=== PATIENT | female | born 1945 | race Two or more races ===

== ENCOUNTER 2023-10-15 07:05 | Emergency (ER) | payer OTHER ==
[~2023-10-15] VITALS: Ht 144.8 cm; Wt 34.8 kg
[2023-10-15 07:54] LABS: Urine Bacteria NONE SEEN /hpf (None Seen); Urine Blood Negative /uL (Negative); Urine Clarity Clear (Clear); Urine Color Yellow (Yellow); Urine Protein, UAD TRACE (Negative); Urine Specific Gravity 1.033 (1.001-1.035); Urine Urobilinogen Normal (Negative); Urine WBC 3 /hpf (0 - 5); Urine pH 5.5 (5.0-8.0)
[2023-10-15 08:05] LABS: Basophils # (auto) 0 10 ^3/uL (0-0.2); Basophils % (auto) 0.5 % (0.0-2.0); Eosinophils # (auto) 0 10 ^3/uL (0-0.8); Eosinophils % (auto) 0.2 % (0.0-7.0); Hematocrit 39.1 % (36.0-46.0); Hemoglobin 13.2 g/dL (12.2-16.2); Lymphocytes # (auto) 0.4 10 ^3/uL (0.4-5.4); Lymphocytes % (auto) 7.3 % (10.0-50.0); Mean Corpuscular Hemoglobin 30.2 pg (28.0-32.0); Mean Corpuscular Hgb Conc. 33.7 g/dL (32.0-36.0); Mean Corpuscular Volume 89.4 fL (80.0-100.0); Monocytes # (auto) 0.3 10 ^3/uL (0-1.3); Monocytes % (auto) 5.3 % (0.0-12.0); Neutrophils % (auto) 86.7 % (37.0-80.0); Red Blood Cells 4.37 10^6/uL (4.0-5.20); White Blood Cell 5.7 10^3/uL (4.4-10.8)
[2023-10-15 08:21] LABS: Alanine Aminotransferase 341 U/L (7-40); Albumin 4.6 g/dL (3.2-4.8); Alkaline Phosphatase 815 U/L (46-116); Anion Gap 8 (5-15); Aspartate Aminotransferase 302 U/L (13-40); BUN/Creatinine Ratio 10.7 (10.0-20.0); Bilirubin, Total 9.8 mg/dL (0.2-1.0); Blood Urea Nitrogen 6 mg/dL (9-23); Carbon Dioxide 27 mmol/L (20-30); Chloride 98 mmol/L (98-107); Glucose 265 mg/dL (74-106); Potassium 3.4 mmol/L (3.5-5.1); Sodium 133 mmol/L (136-145); Total Protein 7.6 g/dL (5.7-8.2)
[2023-10-15] MEDS ORDERED: IOHEXOL 300 MG/ML 100ML BOTTLE IJ ONE (08:41)
[2023-10-15 09:20] VITALS: PULSE 85; RESP 13; O2SAT 100
[2023-10-15 18:38] VITALS: BP 152/77; PULSE 65; RESP 12; TEMP 98.3; O2SAT 97
== END 2023-10-15 19:20 | disposition short-term general hospital (02) ==
LOC: ER 07:05
DX: K76.9 Liver disease, unspecified (principal); I10 Essential (primary) hypertension; E11.65 Type 2 diabetes mellitus with hyperglycemia; Z88.2 Allergy status to sulfonamides; Z88.5 Allergy status to narcotic agent
CPT/HCPCS: 36415; 74177; 80053; 81001; 82962; 83690; 85025; 99285; Q9967

== ENCOUNTER 2024-08-31 11:10 | Inpatient (IN) | payer OTHER ==
[~2024-08-31] VITALS: Ht 144.8 cm; Wt 37.7 kg
[2024-08-31 13:00] VITALS: PULSE 92; RESP 14; O2SAT 96
[2024-08-31 13:23] LABS: Basophils # (auto) 0 10 ^3/uL (0-0.2); Basophils % (auto) 0.3 % (0.0-2.0); Eosinophils # (auto) 0 10 ^3/uL (0-0.8); Eosinophils % (auto) 0.2 % (0.0-7.0); Hematocrit 33.7 % (36.0-46.0); Hemoglobin 10.8 g/dL (12.2-16.2); Lymphocytes # (auto) 0.6 10 ^3/uL (0.4-5.4); Mean Corpuscular Hemoglobin 28.4 pg (28.0-32.0); Mean Corpuscular Hgb Conc. 32.1 g/dL (32.0-36.0); Mean Corpuscular Volume 88.5 fL (80.0-100.0); Monocytes # (auto) 0.3 10 ^3/uL (0-1.3); Monocytes % (auto) 7.6 % (0.0-12.0); Neutrophils # (auto) 3.5 10 ^3/uL (1.6-8.6); Neutrophils % (auto) 77.9 % (37.0-80.0); Nucleated Red Blood Cells % 0.2 %; Platelet Count (auto) 229 10^3/uL (140-450); Red Blood Cells 3.81 10^6/uL (4.0-5.20); Red Cell Distribution Width 16.5 % (11.8-14.3); White Blood Cell 4.4 10^3/uL (4.4-10.8)
[2024-08-31] MEDS: ONDANSETRON ODT 4 MG TAB PO ONE (13:23)
--- NOTE | 2024-08-31 13:29 | ED.PDOC ---
Musculoskeletal HPI Comments 78 Y F, with PMHX of HTN, DM, cancer, presents to the ED with CC of extremity swelling. Per patient's daughter, patient had a right DVT in June 2024, and has since been experiencing bilateral leg swelling. Patient relays, that she has no pain with c/o heavy feeling in both her legs and denies any pain. Patient has been taking Eliquis; since Jun for DVT. Patient's daughter states that she has been unable to see oncologist due to right hip Fx in Jun 2024; that has resulted in patient not receiving chemotherapy. Patient denies any chills, fever, nausea, diarrhea, or vomiting. Chief Complaint: Extremity Swelling Time Seen by MD: 12:45 Reviewed Notes: Nurses Notes, Medications, Allergies Allergies: Coded Allergies: Codeine (Verified Allergy, Unknown, 10/15/23) Sulfa Antibiotics (Verified Allergy, Unknown, 10/15/23) Mode of Arrival: Ambulatory Location: Bilateral Extremity Location: Leg Timing: Months Prehospital treatment: None Severity: Mild Able to Move Extremity: Yes Pain: None Mechanism: None Symptoms: Swelling DVT Risk Factors: Cancer Associated signs and symptoms: Swelling Past Medical History PAST MEDICAL HISTORY: Cancer, DM, HTN Surgical History: PRESS SET UP History: Denies all PRESS SET UP Hx Family History Family History: Unknown Social History Smoker: Non-Smoker Alcohol: Denies ETOH Use Drugs: Denies Drug Use Lives In: Home Constitutional: denies: chills, diaphoresis, fatigue, fever, malaise, sweats, weakness, others EENTM: denies: blurred vision, double vision, ear bleeding, ear discharge, ear drainage, ear pain, ear ringing, eye pain, eye redness, hearing loss, mouth pain, mouth swelling, nasal discharge, nose bleeding, nose congestion, nose pain, photophobia, tearing, throat pain, throat swelling, voice changes, others Respiratory: denies: cough, hemoptysis, orthopnea, SOB at rest, shortness of breath, SOB with excertion, stridor, wheezing, others Cardiovascular: denies: chest pain, dizzy spells, diaphoresis, Dyspnea on exertion, edema, irregular heart beat, left arm pain, lightheadedness, palpitations, PND, syncope, others Gastrointestinal: denies: abdomen distended, abdominal pain, blood streaked bowels, constipated, diarrhea, dysphagia, difficulty swallowing, hematemesis, melena, nausea, poor appetite, poor fluid intake, rectal bleeding, rectal pain, vomiting, others Genitourinary: denies: abnormal vagina bleeding, burning, dyspareunia, dysuria, flank pain, frequency, hematuria, incontinence, pain, , vagina discharge, urgency, others Neurological: denies: dizziness, fainting, headache, left sided numbness, left sided weakness, numbness, paresthesia, pre-existing deficit, right sided numbness, right sided weakness, seizure, speech problems, tingling, tremors, weakness, others Musculoskeletal: reports: others (bilateral leg swelling); denies: back pain, gout, joint pain, joint swelling, muscle pain, muscle stiffness, neck pain Integumetry: denies: bruises, change in color, change in hair/nails, dryness, laceration, lesions, lumps, rash, wounds, others Allergic/Immunocompromised: denies: Difficulty Healing, Frequent Infections, Hives, Itching, others Hematologic/Lymphatic: denies: anemia, blood clots, easy bleeding, easy bruising, swollen glands, others Endocrine: denies: excessive hunger, excessive sweating, excessive thirst, excessive urination, flushing, intolerance to cold, intolerance to heat, unexplained weight gain, unexplained weight loss, others Psychiatric: denies: anxiety, bipolar disorder, depression, hopeless, panic disorder, schizophrenia, sleepless, suicidal, others All Other Systems: Reviewed and Negative Physical Exam General Appearance: No Apparent Distress, Thin HEENT: Normal ENT Inspection, PERRL/EOMI, Pharynx Normal, TMs Normal Neck: Full Range of Motion, Non-Tender, Normal, Normal Inspection Respiratory: Chest Non-Tender, Lungs Clear, No Accessory Muscle Use, No Respiratory Distress, Normal Breath Sounds Cardiovascular: No Edema, No JVD, No Murmur, No Gallop, Normal Peripheral Pulses, Regular Rate/Rhythm Breast Exam: Deferred Gastrointestinal: No Organomegaly, Non Tender, No Pulsatile Mass, Normal Bowel Sounds, Soft Genitalia: Deferred Pelvic: Deferred Rectal: Deferred Extremities: Leg edema, No calf tenderness, Normal capillary refill, Normal inspection, Normal range of motion, Non-tender, No pedal edema, Swelling, Tender, Other (Swollen almost left leg patient had fracture right hip and a DVT to the right leg) Musculoskeletal : Apperance: Normal Neurologic: Alert, information assurance officer II-XII nml as Tested, No Motor Deficits, Normal Affect, Normal Mood, No Sensory Deficits Cerebellar Function: Normal Reflexes: Normal Skin: Dry, Normal Color, Warm Peripheral Pulses: 1+ carotid (R), 1+ carotid (L) Lymphatic: No Adenopathy Was a procedure done? Was a procedure done?: No Differential Diagnosis EXT Differential Diagnosis: CHF, Deep Vein Thrombosis, Arthritis X-Ray, Labs, Meds, VS Vital Signs Date Time Temp Pulse Resp B/P (MAP) Pulse Ox O2 Delivery O2 Flow Rate FiO2 08/31/24 15:11 77 08/31/24 15:00 79 13 164/84 (110) 96 08/31/24 13:00 92 14 132/76 (94) 96 08/31/24 13:00 92 14 96 Room Air* 0 21 08/31/24 12:30 94 16 132/76 (94) 97 08/31/24 12:29 94 08/31/24 11:37 97.3 106 18 123/75 (91) 99 Lab Test 08/31/24 12:58 08/31/24 12:44 Range/Units White Blood Count 4.4 4.4-10.8 10^3/uL Red Blood Count 3.81 L 4.0-5.20 10^6/uL Hemoglobin 10.8 L 12.2-16.2 g/dL Hematocrit 33.7 L 36.0-46.0 % Mean Corpuscular Volume 88.5 80.0-100.0 fL Mean Corpuscular Hemoglobin 28.4 28.0-32.0 pg Mean Corpuscular Hemoglobin Concent 32.1 32.0-36.0 g/dL Red Cell Distribution Width 16.5 H 11.8-14.3 % Platelet Count 229 140-450 10^3/uL Mean Platelet Volume 6.9 6.9-10.8 fL Neutrophils (%) (Auto) 77.9 37.0-80.0 % Lymphocytes (%) (Auto) 14.0 10.0-50.0 % Monocytes (%) (Auto) 7.6 0.0-12.0 % Eosinophils (%) (Auto) 0.2 0.0-7.0 % Basophils (%) (Auto) 0.3 0.0-2.0 % Neutrophils # (Auto) 3.5 1.6-8.6 10 ^3/uL Lymphocytes # (Auto) 0.6 0.4-5.4 10 ^3/uL Monocytes # (Auto) 0.3 0-1.3 10 ^3/uL Eosinophils # (Auto) 0 0-0.8 10 ^3/uL Basophils # (Auto) 0 0-0.2 10 ^3/uL Nucleated Red Blood Cells 0.2 % Prothrombin Time 11.4 9.3-11.8 sec Prothrombin Time INR 1.08 0.9-1.15 Activated Partial Thromboplast Time 26.3 24.5-34.5 SEC D-Dimer, Quantitative 2.73 H 0.0-0.49 mg/L FEU Sodium Level 139 136-145 mmol/L Potassium Level 2.4 *L 3.5-5.1 mmol/L Chloride Level 99 98-107 mmol/L Carbon Dioxide Level 31 20-31 mmol/L Anion Gap 9 5-15 Blood Urea Nitrogen 8 L 9-23 mg/dL Creatinine 0.45 L 0.550-1.02 mg/dL Glomerular Filtration Rate Calc 98 >90 mL/min BUN/Creatinine Ratio 17.8 10.0-20.0 Serum Glucose 145 H 74-106 mg/dL Calcium Level 8.8 8.7-10.4 mg/dL Magnesium Level 1.6 1.6-2.6 mg/dL Total Bilirubin 0.4 0.2-1.0 mg/dL Aspartate Amino Transferase (AST) 26 13-40 U/L Alanine Aminotransferase (ALT) 13 7-40 U/L Alkaline Phosphatase 121 H 46-116 U/L B-Type Natriuretic Peptide 49.26 0-100 pg/mL Total Protein 5.7 5.7-8.2 g/dL Albumin 3.4 3.2-4.8 g/dL Thyroid Stimulating Hormone (TSH) 13.77 H 0.55-4.78 uIU/mL POC Glucose 141 H 70-106 mg/dl Current Medications Medications (Trade) Dose Ordered Sig/Vira Route Start Time Stop Time Status Last Admin Ondansetron HCl (Zofran Po) 4 mg ONCE ONCE PO 08/31/24 13:15 08/31/24 13:16 DC 08/31/24 13:23 Sodium Chloride 1,000 ml @ 150 mls/hr Q6H40M ONCE IV 08/31/24 13:30 08/31/24 20:09 08/31/24 13:38 Potassium Bicarbonate (Klor-Con/Ef) 50 meq ONCE ONCE PO 08/31/24 14:00 08/31/24 14:01 DC 08/31/24 14:00 Acetaminophen/ Hydrocodone Bitart ([place] 5/325MG Tab) 1 tab ONCE ONCE PO 08/31/24 15:30 08/31/24 15:31 DC 08/31/24 15:21 [place] [id number] Ph: [phone] DIAGNOSTIC IMAGING Diagnostic Imaging Report : [id number] Signed PATIENT: BETHANIE FAUSTACCT: [id number] UNIT: [id number] : 1945 LOC: ER ROOM / BED: / AGE / SEX: 78 / F ADM STATUS: REG ER SERVICE 0000 ORDERING PHYSICIAN: TORI SEAMAN MD PROCEDURE(s): LLDVT - LT Lower DVT REASON: DVT ORDER NUMBER(s): [id number], ACCESSION NUMBER(s): [id number] Left lower extremity venous duplex Clinical History: Edema Comparison: None Findings: Duplex Doppler evaluation of the deep venous system of the left lower extremity from the common femoral vein to the popliteal vein including color Doppler and spectral/pulsed waveform analysis was performed. The common femoral vein demonstrates appropriate compressibility and waveform variability . There is compressibility/patency of the great saphenous vein at the proximal thigh . There is complete occlusion of the proximal femoral vein extending to the distal femoral vein. The popliteal vein demonstrates appropriate compressibility and waveform variability . There is normal compressibility at the tibioperoneal trunk. Impression: Left lower extremity DVT. If clinical concern/symptoms persist or worsen, short-interval follow-up study is suggested. ATED BY: DEAN PERALTA MD DICTATED DATE/TIME: 08/31/241426 SIGNED BY: DEAN PERALTA MD SIGNED DATE/TIME: 08/31/241426 CC: X-Ray, Labs, Meds, VS Comment Course in the emergency department eventful patient came in complaining of extremity swelling and chronic pain patient with a history of diabetes hypertension hypothyroidism Chest x-ray is normal The ultrasound of the legs shows total obstruction of the proximal femoral vein extending to the distal CBC 4400 with 77% neutrophils H&H 10.6 and 33.7 Magnesium 1.6 BNP in 40 to Urine pending D-dimer elevated 2.73 TSH 13.77 INR 1.08 CMP potassium of 2.4 blood sugar 141 Patient will be admitted for further care patient also has history of pancreatic cancer bile stents Dr. Tyson will admit the patient Time of 1ST Reevaluation: 13:15 Reevaluation 1ST: Unchanged Time of 2ND Reevaluation: 15:44 Reevaluation 2ND: Unchanged Patient Education/Counseling: Diagnosis, Treatment, Prognosis Family Education/Counseling: Diagnosis, Treatment, Prognosis, No Family Present Departure 1 Departure Time of Disposition: 17:15 Impression: Primary Impression: Deep vein thrombosis (DVT) of left lower extremity Qualified Codes: I82.412 - Acute embolism and thrombosis of left femoral vein Additional Impressions: Hypokalemia Elevated d-dimer Hypothyroidism (acquired) Hyperglycemia Pancreatic cancer Qualified Codes: C25.9 - Malignant neoplasm of pancreas, unspecified History of biliary duct stent placement Disposition: ADMITTED INPATIENT Admit to: Tele Condition: Fair Critical Care Note Critical Care Time?: No Stability Stability form required: Yes Unstable for transfer: Telemetry monitoring, Requires medication (Requires Med for stabilization) Heart Score Heart Score: Heart Score Response (Comments) Value History N/A 0 EKG N/A 0 Age >65 2 Risk Factors >3 or Hx ASHD 2 Troponin N/A 0 Total 4 I personally scribed for TORI SEAMAN MD ([email or web address]) on 08/31/24 at 13:29. Electronically submitted by Falguni Adams ([email or web address]). I personally scribed for TORI SEAMAN MD ([email or web address]) on 08/31/24 at 15:53. Electronically submitted by Eileen Major ([email or web address]). TORI SEAMAN MD Aug 31, 2024 13:29
[2024-08-31] MEDS: SODIUM CHLORIDE 0.9% 1,000 ML IV ONE (13:38)
[2024-08-31 13:43] LABS: Alanine Aminotransferase 13 U/L (7-40); Albumin 3.4 g/dL (3.2-4.8); Anion Gap 9 (5-15); Aspartate Aminotransferase 26 U/L (13-40); BUN/Creatinine Ratio 17.8 (10.0-20.0); Calcium 8.8 mg/dL (8.7-10.4); Chloride 99 mmol/L (98-107); Sodium 139 mmol/L (136-145)
[2024-08-31 13:44] LABS: Bilirubin, Total 0.4 mg/dL (0.2-1.0)
[2024-08-31 13:50] LABS: Alkaline Phosphatase 121 U/L (46-116); Blood Urea Nitrogen 8 mg/dL (9-23); Carbon Dioxide 31 mmol/L (20-31); Glucose 145 mg/dL (74-106); Magnesium 1.6 mg/dL (1.6-2.6); Total Protein 5.7 g/dL (5.7-8.2)
[2024-08-31 13:51] LABS: Potassium 2.4 mmol/L (3.5-5.1)
[2024-08-31] MEDS: POTASSIUM EFFERVESENT TAB 25 MEQ PO ONE (14:00)
--- NOTE | 2024-08-31 14:30 | DVH ---
Left lower extremity venous duplex Clinical History: Edema Comparison: None Findings: Duplex Doppler evaluation of the deep venous system of the left lower extremity from the common femor al vein to the popliteal vein including color Doppler and spectral/pulsed waveform analysis was perfo rmed. The common femoral vein demonstrates appropriate compressibility and waveform variability . There is compressibility/patency of the great saphenous vein at the proximal thigh . There is complete occlusion of the proximal femoral vein extending to the distal femoral vein. The popliteal vein demonstrates appropriate compressibility and waveform variability . There is normal compressibility at the tibioperoneal trunk. Impression: Left lower extremity DVT. If clinical concern/symptoms persist or worsen, short-interval follow-up study is suggested.
[2024-08-31] MEDS: HYDROcodone-ACET 5/325MG TAB PO ONE (15:21)
[2024-08-31 17:00] LABS: INR 1.08 (0.9-1.15); Partial Thromboplastin Time 26.3 SEC (24.5-34.5); Prothrombin Time 11.4 sec (9.3-11.8)
[2024-08-31] MEDS: LEVOTHYROXINE SODIUM 100 MCG/5 ML INJ IV ONE (17:53)
[2024-08-31] MEDS: ENOXAPARIN SOD 60 MG/0.6 ML SYRINGE SC ONE (17:53)
[2024-08-31] MEDS: ACETAMINOPHEN 325 MG TAB PO ONE (17:53)
--- NOTE | 2024-08-31 19:53 | DVH ---
EXAM: CHEST TWO VIEWS ROUTINE CLINICAL HISTORY: Fluid retention COMPARISON: None TECHNIQUE: Frontal and lateral view of the chest was obtained FINDINGS: Lines and Tubes: There is a right chest port central venous catheter the tip at the cavoatrial juncti on. Lungs: No focal consolidation. Pleura: No effusion. No pneumothorax. Cardiomediastinal contours: Unremarkable Pulmonary vasculature: Within normal limits. Bones: No acute osseous abnormality. IMPRESSION: 1.No acute cardiopulmonary disease.
[2024-08-31] MEDS ORDERED: SODIUM CHLORIDE 0.9% 1,000 ML IV SCH (20:00)
[2024-08-31] MEDS: IOHEXOL 350 MG/ML 100ML IJ ONE (20:17)
[2024-08-31] MEDS: SODIUM CHLORIDE 0.9% 250 ML IV ONE (20:36)
[2024-08-31] MEDS: MAGNESIUM SULFATE 1GM/100ML 100 ML IV SCH (20:37)
[2024-08-31 20:43] LABS: Urine Bacteria None Seen /hpf (None Seen)
[2024-08-31] MEDS: POTASSIUM CHL 20 Meq TABLET PO ONE (20:43)
[2024-08-31 21:06] LABS: Urine Blood Negative /uL (Negative); Urine Budding Yeast OCCASIONAL /hpf (None Seen); Urine Clarity Clear (Clear); Urine Color Light-Yellow (Yellow); Urine Protein, UAD Negative (Negative); Urine Specific Gravity 1.022 (1.001-1.035); Urine Urobilinogen Normal (Negative); Urine WBC 3 /hpf (0 - 5); Urine pH 6.5 (5.0-9.0)
--- NOTE | 2024-08-31 21:24 | DVH ---
Exam: CT CT CHEST/AB/PL W CON- IV ONLY History: hx of cancer Comparison Study: None available at time of dictation. Technique: Multidetector spiral CT of the chest, abdomen and pelvis was performed from lower neck to pubic symphysis. Intravenous contrast was administered during this examination. Portal venous imagi ng was obtained. Axial, coronal and sagittal multiplanar reformats were performed by the technologist on a separate workstation. Radiation Dose : 1. Chest/Abdomen/Pelvis: CTDIvol 6 mGy, DLP 450 mGy*cm. Findings: Lower neck: Within normal limits Lungs: 1.1 cm spiculated lesion in the left upper lobe ( series 2, image 71). Spiculated lesion in th e posterior left lower lobe measuring 1.4 cm ( series 4, image 66). Smaller pulmonary nodule seen marina aterally throughout the lungs. Heart/Vascular Structures: Pulmonary emboli seen bilaterally in the proximal segmental arteries. No dilation of the pulmonary trunk. No right heart strain. Moderate calcification of the coronary vesse ls. Lymph Nodes: No adenopathy Pleura: Within normal limits Liver: The liver is normal in size. No focal lesions. Normal hepatic vascular enhancement. Gallbladder and Biliary Tree: Pneumobilia with biliary stent. There is tiny foci of air within the ga llbladder and in the hepatic hilum. Spleen: Unremarkable Pancreas: Severe dilation of the main pancreatic duct measuring up to 2 cm. Ill-defined hypoattenuati ng lesions near the pancreatic head. Adrenal Glands: Unremarkable Kidneys: Kidneys demonstrate normal symmetric enhancement without focal lesions, calculi or hydroneph rosis. Bladder: Unremarkable Bowel: The stomach is grossly normal in appearance. Fluid-filled distended loops of small bowel, whic h are nonspecific but can be seen with viral enteritis.. Moderate fecal retention throughout the colo n. The appendix is not visualized; however, no secondary findings of acute appendicitis identified. Ascites: Absent Lymphadenopathy: No mesenteric, retroperitoneal or periportal lymphadenopathy. Abdominal Wall and Mesentery: Unremarkable. Vasculature: The visualized abdominal aorta is normal in size and caliber. Abdominal and pelvic vess els demonstrate normal enhancement. Pelvic Organs: Unremarkable Musculoskeletal: No aggressive focal bony lesions, acute fractures or dislocation. Chronic deformity of the right superior and inferior pubic rami. IMPRESSION: Pulmonary emboli seen bilaterally in the proximal segmental arteries. No dilation of the pulmonary tr unk. No right heart strain. Pulmonary lesions as described above. Pneumobilia with biliary stent. Tiny foci of air within the gallbladder and in the gallbladder fossa. Severe dilation of the main pancreatic duct measuring up to 2 cm with several ill-defined hypodensiti es of the pancreatic head. Correlate with patient's history for possible pancreatic cancer. Ancillary findings as described above. Critical findings Critical Result: Pulmonary embolism Findings discussed with TORI SEAMAN at 08/31/2024 09:21 PM, and acknowledged receipt and understand ing of the findings.
[2024-08-31] MEDS ORDERED: HEPARIN DRIP/D5W 100UNITS/ML 250 ML IV SCH (21:45)
[2024-08-31] MEDS ORDERED: DOCUSATE SOD 100 MG CAP PO PRN (21:45)
[2024-08-31] MEDS ORDERED: HEPARIN SODIUM (PORCINE) 5000 UNITS/ML 1ML VIAL IV ONE (21:45)
[2024-08-31] MEDS ORDERED: ONDANSETRON HCL 4 MG/2 ML VIAL IV PRN (21:45)
[2024-08-31] MEDS ORDERED: NITROGLYCERIN 0.4 MG SL TAB SL PRN (21:45)
[2024-08-31 21:50] VITALS: PULSE 86; RESP 16; O2SAT 94
[2024-08-31 22:54] LABS: Basophils # (auto) 0 10 ^3/uL (0-0.2); Basophils % (auto) 0.6 % (0.0-2.0); Eosinophils # (auto) 0 10 ^3/uL (0-0.8); Eosinophils % (auto) 0.4 % (0.0-7.0); Hematocrit 31.3 % (36.0-46.0); Hemoglobin 10.4 g/dL (12.2-16.2); Lymphocytes # (auto) 0.6 10 ^3/uL (0.4-5.4); Mean Corpuscular Hemoglobin 29.3 pg (28.0-32.0); Mean Corpuscular Hgb Conc. 33.2 g/dL (32.0-36.0); Mean Corpuscular Volume 88.3 fL (80.0-100.0); Monocytes # (auto) 0.3 10 ^3/uL (0-1.3); Monocytes % (auto) 7.1 % (0.0-12.0); Neutrophils # (auto) 2.9 10 ^3/uL (1.6-8.6); Neutrophils % (auto) 75.9 % (37.0-80.0); Nucleated Red Blood Cells % 0.1 %; Platelet Count (auto) 237 10^3/uL (140-450); Red Blood Cells 3.55 10^6/uL (4.0-5.20); Red Cell Distribution Width 16.6 % (11.8-14.3); White Blood Cell 3.9 10^3/uL (4.4-10.8)
[2024-08-31 23:17] LABS: INR 1.17 (0.9-1.15); Partial Thromboplastin Time 35.3 SEC (24.5-34.5); Prothrombin Time 12.3 sec (9.3-11.8)
[2024-09-01] VITALS (7 sets, daily range): BP systolic 134–145; BP diastolic 73–83; PULSE 84–100; RESP 13–18; TEMP 97.9–98; O2SAT 94–98
[2024-09-01] MEDS: HYDROcodone-ACET 5/325MG TAB PO PRN (02:06)
--- NOTE | 2024-09-01 02:18 | DVHHP2 ---
PABLO MCKEE DAYLIGHT DRILLER 09/01/24 0218: History of Present Illness Reason for Visit: Left leg swelling History of Present Illness 78-year-old female with past medical history of pancreatic cancer, Right lower extremity DVT on Eliquis Presents with complaints of left lower extremity Swelling. Patient endorses Her chemotherapy was disrupted due to A recent right hip fracture. Patient also endorses she has not been taking her Eliquis As prescribed Because she has not been able to get a prescription refill. CTA Of the chest was positive for bilateral pulmonary embolism. Patient denies fevers, chills, Shortness of breath, chest pain, nausea, vomiting. Heme/Onc: Cancer Endocrine: Hypothyroidism Smoke: No ALCOHOL: none Drugs: None Lives: with Family Review of Systems Constitutional: No: Fever, Chills, Sweats, Weakness, Malaise, Other Eyes: No: Pain, Vision change, Conjunctivae inflammation, Eyelid inflammation, Other, Redness ENT: No: Ear pain, Ear discharge, Nose pain, Nose discharge, Nose congestion, Mouth pain, Mouth swelling, Throat pain, Throat swelling, Other Respiratory: No: Cough, Dry, Shortness of breath, SOB with excertion, Wheezing, Hemoptysis, Pleuritic Pain, Sputum, Wheezing, Other Cardiovascular: Edema; No: Chest Pain, Palpitations, Orthopnea, Paroxysmal Noc. Dyspnea, Lt Headedness, Other Gastrointestinal: No: Nausea, Vomiting, Abdominal Pain, Diarrhea, Constipation, Melena, Hematochezia, Other Genitourinary: No Dysuria, No Frequency, No Incontinence, No Hematuria, No Retention, No Other Musculoskeletal: back pain, leg pain (With bilateral edema); No: other, neck pain, shoulder pain, arm pain, hand pain, foot pain Skin: No: Rash, Lesions, Jaundice, Bruising, Other Neurological: No: Weakness, Numbness, Incoordination, Change in speech, Confusion, Seizures, Other Allergies: Coded Allergies: Codeine (Verified Allergy, Unknown, 10/15/23) Sulfa Antibiotics (Verified Allergy, Unknown, 10/15/23) Medications Current Medications Medications Dose Ordered Sig/Vira Route Start Time Stop Time Status Last Admin Dose Admin Docusate Sodium 100 mg BIDPRN PRN PO 08/31/24 21:45 Acetaminophen 650 mg Q6HP PRN PO 08/31/24 21:45 Acetaminophen/ Hydrocodone Bitart 1 tab Q4HP PRN PO 08/31/24 21:45 09/01/24 02:06 1 TAB Ondansetron HCl 4 mg Q4HP PRN IV 08/31/24 21:45 Nitroglycerin 0.4 mg Q5MINP PRN SL 08/31/24 21:45 Morphine Sulfate 2 mg Q30M PRN IV 08/31/24 21:45 Heparin Sodium/ Dextrose 250 ml @ 6.156 mls/ hr Q24H IV 08/31/24 21:45 UNV Exam Vital Signs Vital Signs Date Time Temp Pulse Resp B/P (MAP) Pulse Ox O2 Delivery O2 Flow Rate FiO2 09/01/24 00:00 99 08/31/24 22:00 14 158/74 (102) 96 08/31/24 21:50 Room Air* 0 21 08/31/24 19:35 98.5 98.5 General Appearance: Alert, Oriented X3, Cooperative, mild distress, Other (Ill appearing) HEENT: Atraumatic, PERRLA, EOMI Respiratory: Clear to auscultation, Normal air movement Cardiovascular: Regular rate, Normal S1, Normal S2 Abdominal: Normal bowel sounds, Soft, No tenderness Extremities: No clubbing, Other (A lot of lower extremities edematous) Neuro: Normal speech, Strength at 5/5 X4 ext Psych/Mental Status: Mental status NL, Mood NL Labs/Xrays Labs Test 08/31/24 22:02 08/31/24 20:41 08/31/24 18:39 08/31/24 12:58 Range/Units White Blood Count 3.9 L 4.4-10.8 10^3/uL Red Blood Count 3.55 L 4.0-5.20 10^6/uL Hemoglobin 10.4 L 12.2-16.2 g/dL Hematocrit 31.3 L 36.0-46.0 % Mean Corpuscular Volume 88.3 80.0-100.0 fL Mean Corpuscular Hemoglobin 29.3 28.0-32.0 pg Mean Corpuscular Hemoglobin Concent 33.2 32.0-36.0 g/dL Red Cell Distribution Width 16.6 H 11.8-14.3 % Platelet Count 237 140-450 10^3/uL Mean Platelet Volume 7.0 6.9-10.8 fL Neutrophils (%) (Auto) 75.9 37.0-80.0 % Lymphocytes (%) (Auto) 16.0 10.0-50.0 % Monocytes (%) (Auto) 7.1 0.0-12.0 % Eosinophils (%) (Auto) 0.4 0.0-7.0 % Basophils (%) (Auto) 0.6 0.0-2.0 % Neutrophils # (Auto) 2.9 1.6-8.6 10 ^3/uL Lymphocytes # (Auto) 0.6 0.4-5.4 10 ^3/uL Monocytes # (Auto) 0.3 0-1.3 10 ^3/uL Eosinophils # (Auto) 0 0-0.8 10 ^3/uL Basophils # (Auto) 0 0-0.2 10 ^3/uL Nucleated Red Blood Cells 0.1 % Prothrombin Time 12.3 H 9.3-11.8 sec Prothrombin Time INR 1.17 H 0.9-1.15 Activated Partial Thromboplast Time 35.3 H 24.5-34.5 SEC Urine Color Light-yellow Yellow Urine Clarity Clear Clear Urine pH 6.5 5.0-9.0 Urine Specific [place] 1.022 1.001-1.035 Urine Protein Negative Negative Urine Ketones Negative Negative Urine Blood Negative Negative /uL Urine Nitrite Negative Negative Urine Bilirubin Negative Negative Urine Urobilinogen Normal Negative mg/dL Urine Leukocyte Esterase Negative Negative /uL Urine RBC <1 0 - 4 /hpf Urine WBC 3 0 - 5 /hpf Urine Squamous Epithelial Cells Few <5 /hpf Urine Bacteria None seen None Seen /hpf Urine Yeast (Budding) Occasional None Seen /hpf Urine Glucose 2+ H Normal mg/dL Potassium Level 3.3 L 3.5-5.1 mmol/L D-Dimer, Quantitative 2.73 H 0.0-0.49 mg/L FEU Sodium Level 139 136-145 mmol/L Chloride Level 99 98-107 mmol/L Carbon Dioxide Level 31 20-31 mmol/L Anion Gap 9 5-15 Blood Urea Nitrogen 8 L 9-23 mg/dL Creatinine 0.45 L 0.550-1.02 mg/dL Glomerular Filtration Rate Calc 98 >90 mL/min BUN/Creatinine Ratio 17.8 10.0-20.0 Serum Glucose 145 H 74-106 mg/dL Calcium Level 8.8 8.7-10.4 mg/dL Magnesium Level 1.6 1.6-2.6 mg/dL Total Bilirubin 0.4 0.2-1.0 mg/dL Aspartate Amino Transferase (AST) 26 13-40 U/L Alanine Aminotransferase (ALT) 13 7-40 U/L Alkaline Phosphatase 121 H 46-116 U/L B-Type Natriuretic Peptide 49.26 0-100 pg/mL Total Protein 5.7 5.7-8.2 g/dL Albumin 3.4 3.2-4.8 g/dL Thyroid Stimulating Hormone (TSH) 13.77 H 0.55-4.78 uIU/mL Test 08/31/24 12:44 Range/Units POC Glucose 141 H 70-106 mg/dl Assessment/Plan Assessment/Plan Acute bilateral pulmonary embolism Acute left lower extremity DVT Medically noncompliant on Eliquis Hypokalemia History pancreatic cancer Plan Admit telemetry Consult Pulmonology. Bronchodilator. As needed a supplemental oxygen to maintain oxygen saturation greater than 93%. Echocardiogram. Troponin Consult hematology/oncology. Heparin drip Monitor BMP. Correct electrolytes as needed. GI ppx protonix / DVT ppx heparin gtt Plan discussed with: Patient My Orders Orders - PABLO MCKEE NP Procedure Category Date Status Time Admit ADMIT 08/31/24 Transmitted 21:33 Code Status CODE 08/31/24 Transmitted 21:33 Vital Signs [facility] 08/31/24 In Process 21:33 Review Orders With [facility] 08/31/24 In Process Adm. 21:33 Encourage Activity As [facility]IS 08/31/24 In Process Tolerate 21:33 Consistent DIET 09/01/24 Transmitted Carb(Ccho)Diabetes Breakfast Oxygen By Face Mask RT 08/31/24 Transmitted 21:33 Docusate Sodium PHA 08/31/24 In Process Capsule (Colace 21:45 Acetaminophen Tablet PHA 08/31/24 In Process (Tylenol Tablet) 21:45 Notify Of Changes [facility] 08/31/24 In Process From Base 21:33 Advance Directive [facility] 08/31/24 In Process 21:33 Echo 2d Mode Cardiac US 08/31/24 Logged DOP 21:33 Basic Metabolic Panel LAB 09/01/24 Logged 05:00 Basic Metabolic Panel LAB 09/02/24 Verified 05:00 Basic Metabolic Panel LAB 09/03/24 Verified 05:00 Basic Metabolic Panel LAB 09/04/24 Verified 05:00 Basic Metabolic Panel LAB 09/05/24 Verified 05:00 Complete Blood Count LAB 09/01/24 Logged 05:00 Complete Blood Count LAB 09/02/24 Verified 05:00 Complete Blood Count LAB 09/03/24 Verified 05:00 Complete Blood Count LAB 09/04/24 Verified 05:00 Complete Blood Count LAB 09/05/24 Verified 05:00 Patient Condition ORDERS 08/31/24 Transmitted 21:33 Allergies LUIS 08/31/24 In Process 21:33 Hydrocodone-Acet PHA 08/31/24 In Process 5/325mg Tab (Ward 21:45 Ondansetron Hcl PHA 08/31/24 In Process (Zofran) 21:45 Nitroglycerin PHA 08/31/24 In Process Sublingual (Ntrostat 21:45 Morphine Sulfate PHA 08/31/24 In Process Injection 21:45 Stat Ekg For Chest LUIS 08/31/24 In Process Pain 21:33 Notify Md Of Changes [facility] 08/31/24 In Process From Base 21:33 Pattern Illustrator For [facility] 08/31/24 In Process 24 Hours 21:33 Emergency Dysrhythmia [facility] 08/31/24 In Process Protocol 21:33 Rhythm Strips Once [facility] 08/31/24 In Process Every Shift 21:33 Oxygen By Nasal RT 08/31/24 Transmitted Cannula 21:33 Platelet Monitoring [facility] 08/31/24 In Process 21:33 Vte Protocol Initiated LUIS 08/31/24 In Process 21:33 Heparin Per [facility] 08/31/24 In Process Standardized Proce 21:33 Discontinue All Im LUIS 08/31/24 In Process Injections 21:33 Heparin Sodium PHA 08/31/24 Pending (Porcine) 21:45 Heparin Drip/D5w PHA 08/31/24 Pending 100units/Ml 21:45 *Consult CONS 08/31/24 Transmitted / 21:33 * Hematology/Oncology CONS 08/31/24 Transmitted Consult 21:33 Troponin-I Hs LAB 09/01/24 Transmitted 06:00 Troponin-I Hs LAB 09/01/24 Transmitted 10:00 Date of Service: Sep 01, 2024 Billing Provider: JOSE ROMAN MD Common Visit Codes: NOT BILLABLE JOSE ROMAN MD 09/01/24 9088: Review of Systems Allergies: Coded Allergies: Codeine (Verified Allergy, Unknown, 10/15/23) Sulfa Antibiotics (Verified Allergy, Unknown, 10/15/23) Additional Comments Additional Comments Additional Comments Patient is seen evaluated and admitted by nurse practitioner fire alarm installer. Patient's chart is reviewed. I agree with nurse practitioner's evaluation, documentation, assessment and care plan as outlined. PABLO MCKEE NP Sep 01, 2024 02:18 JOSE ROMAN MD Sep 01, 2024 21:48
[2024-09-01] MEDS: ACETAMINOPHEN 325 MG TAB PO PRN (05:18)
--- NOTE | 2024-09-01 05:28 | DVHINCON2 ---
Date of service: Aug 31, 2024 Referring Physician Hank Saucedo NP Reason for Consultation Pulmonary embolism History of Present Illness A 78-year-old woman with past medical history that includes pancreatic cancer, Hypothyroidism, and right lower extremity DVT, on Eliquis, who presents to ED to day with complaints of left lower extremity swelling. Patient notes her chemotherapy was disrupted due to a recent right hip fracture. Patient also admits she has not been taking her Eliquis as prescribed because was unable to get a prescription refill. CTA of the chest was positive for bilateral pulmonary embolism. Patient denies fevers, chills, shortness of breath, chest pain, na usea, vomiting or other associated sx. Patient was admitted for further care and pulmonary consultation is requested for evaluation and management due to the above findings. Review of Systems: 14-point review of systems negative unless otherwise noted above. Past Medical History: Pancreatic cancer, Hypothyroidism, and right lower extremity DVT, on Eliquis, Past Surgical History: None. Medications: Reviewed. Allergies: Codeine Sulfa Antibiotics Family History: No family history of premature CAD. No family history of lung disorders. Social History: Nonsmoker. No alcohol or illicit drug use. Allergies: Coded Allergies: Codeine (Verified Allergy, Unknown, 10/15/23) Sulfa Antibiotics (Verified Allergy, Unknown, 10/15/23) Home Meds Active Scripts Apixaban Base (ELIQUIS) 5 Mg Tab, 5 MG PO BID, #120 TAB take 2tab (10mg) twice a day for next 7 days then continue at 5mg twice a day Prov:JOSE ROMAN MD 09/02/24 Reported Medications Loratadine (CLARITIN TABLET) 10 Mg Tb, 1 TAB PO DAILY 09/01/24 Pancreatic Enzymes (Creon) 12,000 Unt Cap, 1 CAP PO TID 09/01/24 Metformin Hydrochloride (Metformin Hcl) 500 Mg Tab, 1 TAB PO BID 09/01/24 Gabapentin (Gabapentin) 100 Mg Cap, 1 CAP PO TID PRN for pain 09/01/24 Insulin Glargine (Lantus Solostar) 100 Unit/Ml Inj, SC 09/01/24 Hydrocodone-Acetaminophen (Hydrocodone/Acetaminophen 5-325 mg) 1 Tab Tab, 1 TAB PO TID 09/01/24 Ergocalciferol (Vitamin D) 50,000 Unit Cap, 1 CAP PO QWEEKLY 09/01/24 Levothyroxine Sodium (Levothyroxine Sodium) 88 Mcg Tab, 1 TAB PO DAILY 09/01/24 Losartan Potassium (Losartan Potassium) 50 Mg Tab, 1 TAB PO DAILY 09/01/24 Current Medications Current Medications Medications (Trade) Dose Ordered Sig/Vira Route PRN Reason Start Time Stop Time Status Last Admin Sodium Chloride 1,000 ml @ 75 mls/hr [id number] IV 08/31/24 20:00 08/31/24 19:57 DC Magnesium Sulfate/ Dextrose 100 ml @ 100 mls/hr Q1H IV 08/31/24 20:00 08/31/24 21:59 DC 08/31/24 21:57 Docusate Sodium (Colace Capsule) 100 mg BIDPRN PRN PO FOR CONSTIPATION 08/31/24 21:45 Acetaminophen (Tylenol Tablet) 650 mg Q6HP PRN PO PAIN SCALE 1-3 OR TEMP>100.4 08/31/24 21:45 Acetaminophen/ Hydrocodone Bitart ([place] 5/325MG Tab) 1 tab Q4HP PRN PO MODERATE PAIN (4-6 PAIN SCALE) 08/31/24 21:45 09/01/24 02:06 Ondansetron HCl (Zofran) 4 mg Q4HP PRN IV NAUSEA / VOMITING 08/31/24 21:45 Nitroglycerin (Ntrostat Sublingual) 0.4 mg Q5MINP PRN SL FOR CHEST PAIN 08/31/24 21:45 Morphine Sulfate 2 mg Q30M PRN IV FOR CHEST PAIN 08/31/24 21:45 Heparin Sodium/ Dextrose 250 ml @ 6.156 mls/ hr Q24H IV 08/31/24 21:45 UNV Heparin Sodium/ Dextrose 250 ml @ 6 mls/hr Q24H IV 09/01/24 17:00 Vital Signs Vital Signs Date Time Temp Pulse Resp B/P (MAP) Pulse Ox O2 Delivery O2 Flow Rate FiO2 09/01/24 03:00 88 22 156/86 (109) 95 08/31/24 21:50 Room Air* 0 21 08/31/24 19:35 98.5 98.5 Physical Exam Gen.: Patient lying in bed in no apparent distress. Breathing on room air. Head: Normocephalic, atraumatic. Eyes: EOMI/PERRLA. Ears: Normal hearing. Normal anatomy. Neck/trachea: Trachea midline, supple. Nose: Normal external anatomy. Mouth: Moist mucous membranes. Chest: Decreased air entry bilaterally. No wheezing or rhonchi. Cardiovascular: Positive S1, positive S2. Regular rate and rhythm. Abdomen: Positive bowel sounds in all 4 quadrants. Soft, non-tender, non- distended. : Deferred. Rectal: Deferred. Skin: Warm, dry. Intact. Extremities: 2+ radial pulses bilaterally. No lower extremity edema. Neuro: Awake, alert, oriented x3. No gross motor or sensory deficits. Cranial nerves II through XII intact. Gait not assessed. Labs/Diagnostic Data Labs Test 08/31/24 22:02 08/31/24 20:41 08/31/24 18:39 08/31/24 12:58 Range/Units White Blood Count 3.9 L 4.4-10.8 10^3/uL Red Blood Count 3.55 L 4.0-5.20 10^6/uL Hemoglobin 10.4 L 12.2-16.2 g/dL Hematocrit 31.3 L 36.0-46.0 % Mean Corpuscular Volume 88.3 80.0-100.0 fL Mean Corpuscular Hemoglobin 29.3 28.0-32.0 pg Mean Corpuscular Hemoglobin Concent 33.2 32.0-36.0 g/dL Red Cell Distribution Width 16.6 H 11.8-14.3 % Platelet Count 237 140-450 10^3/uL Mean Platelet Volume 7.0 6.9-10.8 fL Neutrophils (%) (Auto) 75.9 37.0-80.0 % Lymphocytes (%) (Auto) 16.0 10.0-50.0 % Monocytes (%) (Auto) 7.1 0.0-12.0 % Eosinophils (%) (Auto) 0.4 0.0-7.0 % Basophils (%) (Auto) 0.6 0.0-2.0 % Neutrophils # (Auto) 2.9 1.6-8.6 10 ^3/uL Lymphocytes # (Auto) 0.6 0.4-5.4 10 ^3/uL Monocytes # (Auto) 0.3 0-1.3 10 ^3/uL Eosinophils # (Auto) 0 0-0.8 10 ^3/uL Basophils # (Auto) 0 0-0.2 10 ^3/uL Nucleated Red Blood Cells 0.1 % Prothrombin Time 12.3 H 9.3-11.8 sec Prothrombin Time INR 1.17 H 0.9-1.15 Activated Partial Thromboplast Time 35.3 H 24.5-34.5 SEC Urine Color Light-yellow Yellow Urine Clarity Clear Clear Urine pH 6.5 5.0-9.0 Urine Specific [place] 1.022 1.001-1.035 Urine Protein Negative Negative Urine Ketones Negative Negative Urine Blood Negative Negative /uL Urine Nitrite Negative Negative Urine Bilirubin Negative Negative Urine Urobilinogen Normal Negative mg/dL Urine Leukocyte Esterase Negative Negative /uL Urine RBC <1 0 - 4 /hpf Urine WBC 3 0 - 5 /hpf Urine Squamous Epithelial Cells Few <5 /hpf Urine Bacteria None seen None Seen /hpf Urine Yeast (Budding) Occasional None Seen /hpf Urine Glucose 2+ H Normal mg/dL Potassium Level 3.3 L 3.5-5.1 mmol/L D-Dimer, Quantitative 2.73 H 0.0-0.49 mg/L FEU Sodium Level 139 136-145 mmol/L Chloride Level 99 98-107 mmol/L Carbon Dioxide Level 31 20-31 mmol/L Anion Gap 9 5-15 Blood Urea Nitrogen 8 L 9-23 mg/dL Creatinine 0.45 L 0.550-1.02 mg/dL Glomerular Filtration Rate Calc 98 >90 mL/min BUN/Creatinine Ratio 17.8 10.0-20.0 Serum Glucose 145 H 74-106 mg/dL Calcium Level 8.8 8.7-10.4 mg/dL Magnesium Level 1.6 1.6-2.6 mg/dL Total Bilirubin 0.4 0.2-1.0 mg/dL Aspartate Amino Transferase (AST) 26 13-40 U/L Alanine Aminotransferase (ALT) 13 7-40 U/L Alkaline Phosphatase 121 H 46-116 U/L B-Type Natriuretic Peptide 49.26 0-100 pg/mL Total Protein 5.7 5.7-8.2 g/dL Albumin 3.4 3.2-4.8 g/dL Thyroid Stimulating Hormone (TSH) 13.77 H 0.55-4.78 uIU/mL Test 08/31/24 12:44 Range/Units POC Glucose 141 H 70-106 mg/dl Assessment Impression: Pulmonary embolism Deep vein thrombosis, BLE Pancreatic cancer DM type II Cachexia, 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 CTA of the chest was positive for bilateral pulmonary embolism. Patient received Lovenox Monitor renal function. Monitor electrolytes. Supplement as necessary. Monitor ins and outs. DVT prophylaxis. Prognosis: Poor given patient's multiple co-morbidities. Rest of plan per hospitalist and other consultants. Thank you Hank Saucedo NP, for allowing me to participate in this patient's care. Further recommendations will depend on the patient's clinical course. Please do not hesitate to contact me if you have any questions or concerns. This medical document was created using an electronic medical record system with [employer] dictation system. Although these documentations are being carefully reviewed, there may still be some phonetic and typographical changes. The errors are purely typographical, due to imperfection on the software program, and do not reflect any compromise in the patient's medical care. Plan discussed with: Patient, Other (NANCY Huang/POONAM Saucedo) GOPAL RIOS MD Sep 01, 2024 05:28
[2024-09-01 05:51] LABS: Anion Gap 6 (5-15); Chloride 102 mmol/L (98-107); Potassium 3.8 mmol/L (3.5-5.1); Sodium 139 mmol/L (136-145)
[2024-09-01 06:00] LABS: BUN/Creatinine Ratio 11.1 (10.0-20.0); Blood Urea Nitrogen < 5 mg/dL (9-23); Calcium 8.2 mg/dL (8.7-10.4); Carbon Dioxide 31 mmol/L (20-31); Glucose 233 mg/dL (74-106)
[2024-09-01 06:01] LABS: Basophils # (auto) 0 10 ^3/uL (0-0.2); Basophils % (auto) 0.4 % (0.0-2.0); Eosinophils # (auto) 0 10 ^3/uL (0-0.8); Eosinophils % (auto) 0.2 % (0.0-7.0); Hemoglobin 10.4 g/dL (12.2-16.2); Lymphocytes # (auto) 0.5 10 ^3/uL (0.4-5.4); Lymphocytes % (auto) 12.2 % (10.0-50.0); Mean Corpuscular Hemoglobin 29.5 pg (28.0-32.0); Mean Corpuscular Hgb Conc. 33.6 g/dL (32.0-36.0); Mean Corpuscular Volume 87.8 fL (80.0-100.0); Monocytes # (auto) 0.3 10 ^3/uL (0-1.3); Monocytes % (auto) 6.4 % (0.0-12.0); Neutrophils # (auto) 3.4 10 ^3/uL (1.6-8.6); Neutrophils % (auto) 80.8 % (37.0-80.0); Platelet Count (auto) 247 10^3/uL (140-450); Red Blood Cells 3.54 10^6/uL (4.0-5.20); Red Cell Distribution Width 16.2 % (11.8-14.3); White Blood Cell 4.2 10^3/uL (4.4-10.8)
[2024-09-01] MEDS ORDERED: DEXTROSE (50%) 50ML SYRG IV PRN (06:30)
[2024-09-01] MEDS: ACCU-CHEK COMFORT CURVE STRIP VI SCH (06:52)
[2024-09-01] MEDS: InsuLIN REG 1unit/0.01ml Soln (100units/ml) SC SCH (06:58)
[2024-09-01] MEDS ORDERED: GAB100C PO (13:59)
[2024-09-01] MEDS ORDERED: HYDR1TAB97 PO (13:59)
[2024-09-01] MEDS ORDERED: INSUINJ37 SC (13:59)
[2024-09-01] MEDS ORDERED: LEVO-177 PO (13:59)
[2024-09-01] MEDS ORDERED: ERGO1CAP12 PO (13:59)
[2024-09-01] MEDS ORDERED: METF-370 PO (13:59)
[2024-09-01] MEDS ORDERED: LOSA-534 PO (13:59)
[2024-09-01] MEDS ORDERED: PANC1CAP54 PO (14:00)
[2024-09-01] MEDS ORDERED: LORA-483 PO (14:00)
--- NOTE | 2024-09-01 14:11 | DVHSR ---
APPROVED REPORT EXAM: Two-dimensional and M-mode echocardiogram with Doppler and color Doppler. Blood Pressure: 156/86 mmHg INDICATION bilateral PE RISK FACTORS Height: 4'9, Weight: 75 DIMENSIONS LVDd3.7 (3.8-5.7cm)LA (2D)3.3 (1.9-4.0cm)Aortic Root3.1 (2.0-3.7cm) LVDs2.4 (2.5-4.0cm)LA (MM) (1.9-4.0cm)Aortic Cusp Exc1.5 (1.5-2.0cm) EF (%) 65.0 (55-70%)Rt. Atrium1.9 (1.9-4.0cm)Asc. Aorta3.2 cm IVSd1.1 (0.7-1.1cm)RV (D) (1.8-2.4cm) PWd0.7 (0.7-1.1cm) Mitral Valve MitralMitral Stenosis E wave0.71m/sMV Mean GR.mmHg A wave1.28m/sMV Peak GR.113mmHg E/A ratio0.62D MVAcm2 DECEL [id number] 1/2 Tim[place] Aortic Valve Aortic ValveAortic Stenosis V11.03m/Jose Mean GR.3mmHg V21.19m/Jose Peak GR.6mmHg LVOT Diameter1.8 (1.8-2.4cm)Doppler AVA2.20cm2 Pulmonic Valve V20.89m/s Tricuspid Valve TR Velocity2.45m/s [id number] Conclusion Normal left ventricular size and dimension. Normal left ventricular systolic function estimated ejec tion fraction 55%. There is a grade 1 diastolic dysfunction. Normal right ventricular size and dimension. Normal right ventricular systolic function. Slightly i ncreased right ventricular systolic pressure 27 mm of mercury. Normal biatrial size and dimension Normal aortic valve structure and function. Normal mitral valve structure and function. Normal tricuspid valve structure and function. The pulmonary valve is grossly normal. No pericardial effusion.
[2024-09-01] MEDS: HEPARIN DRIP/D5W 100UNITS/ML 250 ML IV SCH ×2 (14:19→21:15)
--- NOTE | 2024-09-01 18:54 | ECG ---
[facility] Test Date: 2024-08-31 Test Time: 15:11:09 Pat Name: BETHANIE FAUST Department: er Room: 0247T B Gender: F Melter Caster: yared : 1945 Requested By: TORI SEAMAN Order Number: [id number] Reading MD: Everardo Patel Measurements Intervals [place] Rate: 77 P: 20 NH: 103 QRS: -40 QRSD: 119 T: 13 QT: 418 QTc: 474 Interpretive Statements Sinus rhythm Short NH interval Incomplete RBBB and LAFB Electronically Signed On 09-02-2024 10:26:06 PST by Everardo Patel Please click the below link to view image of tracing.
[2024-09-01 20:26] LABS: INR 1.1 (0.9-1.15); Partial Thromboplastin Time 40.6 SEC (24.5-34.5); Prothrombin Time 11.6 sec (9.3-11.8)
--- NOTE | 2024-09-01 22:44 | DVHPN2 ---
Progress Note - Dictate Date Seen: Sep 01, 2024 Medical Necessity Reason Pt with a Central, PICC or Fol: No Subjective Patient seen and examined at bedside. Breathing comfortably on room air. Overnight events reviewed. vital signs Vital Sign Date Time Temp Pulse Resp B/P (MAP) Pulse Ox O2 Delivery O2 Flow Rate FiO2 09/01/24 19:06 97.7 09/01/24 17:00 90 14 144/78 (100) 98 09/01/24 12:47 Room Air* 0 21 medications Current Medications Medications Dose Ordered Sig/Vira Route Start Time Stop Time Status Last Admin Dose Admin Docusate Sodium 100 mg BIDPRN PRN PO 08/31/24 21:45 Acetaminophen 650 mg Q6HP PRN PO 08/31/24 21:45 09/01/24 18:06 650 MG Acetaminophen/ Hydrocodone Bitart 1 tab Q4HP PRN PO 08/31/24 21:45 09/01/24 21:59 1 TAB Ondansetron HCl 4 mg Q4HP PRN IV 08/31/24 21:45 Nitroglycerin 0.4 mg Q5MINP PRN SL 08/31/24 21:45 Morphine Sulfate 2 mg Q30M PRN IV 08/31/24 21:45 Heparin Sodium/ Dextrose 250 ml @ 6.156 mls/ hr Q24H IV 08/31/24 21:45 UNV Diagnostic Test (Pha) 1 strip ACHS 09/01/24 07:00 09/01/24 17:52 1 STRIP Insulin Human Regular ACHS SC 09/01/24 07:00 09/01/24 21:58 2 UNITS Dextrose 50 ml UD PRN IV 09/01/24 06:30 Morphine Sulfate 2 mg Q4HPRN PRN IV 09/01/24 06:30 Heparin Sodium/ Dextrose 250 ml @ 8 mls/hr Q24H IV 09/01/24 21:15 09/01/24 21:15 8 MLS/HR objective Gen.: Patient lying in bed in no apparent distress. Breathing on room air. Head: Normocephalic, atraumatic. Eyes: EOMI/PERRLA. Ears: Normal hearing. Normal anatomy. Neck/trachea: Trachea midline, supple. Nose: Normal external anatomy. Mouth: Moist mucous membranes. Chest: Decreased air entry bilaterally. No wheezing or rhonchi. Cardiovascular: Positive S1, positive S2. Regular rate and rhythm. Abdomen: Positive bowel sounds in all 4 quadrants. Soft, non-tender, non- distended. : Deferred. Rectal: Deferred. Skin: Warm, dry. Intact. Extremities: 2+ radial pulses bilaterally. No lower extremity edema. Neuro: Awake, alert, oriented x3. No gross motor or sensory deficits. Cranial nerves II through XII intact. Gait not assessed. 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 Start heparin drip per pharmacy protocol Follow up Heme/onc recommendations Accu-Cheks, ISS. Pain control Avoid oversedation. Updated patient and family member at bedside. Labs and imaging reviewed. Rest of plan as noted below. Plan: Supplemental oxygen PRN Titrate to keep O2 sats above 92%. CTA of chest positive for bilateral pulmonary embolism. Monitor renal function. Monitor electrolytes. Supplement as necessary. Monitor ins and outs. DVT prophylaxis. Prognosis: Poor given patient's multiple co-morbidities. Rest of plan per hospitalist and other consultants. Thank you Hank Saucedo NP, for allowing me to participate in this patient's care. Further recommendations will depend on the patient's clinical course. Please do not hesitate to contact me if you have any questions or concerns. This medical document was created using an electronic medical record system with [employer] dictation system. Although these documentations are being carefully reviewed, there may still be some phonetic and typographical changes. The errors are purely typographical, due to imperfection on the software program, and do not reflect any compromise in the patient's medical care. Plan discussed with: Patient, Other (NATHANIEL Martin) GOPAL RIOS MD Sep 01, 2024 22:44
[2024-09-02] VITALS (7 sets, daily range): BP systolic 139–153; BP diastolic 69–94; PULSE 89–107; RESP 18; TEMP 37.2; O2SAT 97–99
[2024-09-02 03:13] LABS: Basophils # (auto) 0 10 ^3/uL (0-0.2); Basophils % (auto) 0.3 % (0.0-2.0); Eosinophils # (auto) 0 10 ^3/uL (0-0.8); Eosinophils % (auto) 0.4 % (0.0-7.0); Hematocrit 31.9 % (36.0-46.0); Hemoglobin 10.7 g/dL (12.2-16.2); Lymphocytes # (auto) 0.9 10 ^3/uL (0.4-5.4); Lymphocytes % (auto) 17.8 % (10.0-50.0); Mean Corpuscular Hemoglobin 29.2 pg (28.0-32.0); Mean Corpuscular Hgb Conc. 33.5 g/dL (32.0-36.0); Mean Corpuscular Volume 87.3 fL (80.0-100.0); Monocytes # (auto) 0.4 10 ^3/uL (0-1.3); Monocytes % (auto) 7.6 % (0.0-12.0); Neutrophils # (auto) 3.5 10 ^3/uL (1.6-8.6); Neutrophils % (auto) 73.9 % (37.0-80.0); Nucleated Red Blood Cells % 0.1 %; Platelet Count (auto) 243 10^3/uL (140-450); Red Blood Cells 3.66 10^6/uL (4.0-5.20); Red Cell Distribution Width 16.4 % (11.8-14.3); White Blood Cell 4.8 10^3/uL (4.4-10.8)
[2024-09-02 03:22] LABS: Chloride 101 mmol/L (98-107); Potassium 3.5 mmol/L (3.5-5.1); Sodium 136 mmol/L (136-145)
[2024-09-02 03:23] LABS: Anion Gap 4 (5-15)
[2024-09-02 03:28] LABS: BUN/Creatinine Ratio 18.8 (10.0-20.0)
[2024-09-02 03:30] LABS: Blood Urea Nitrogen 6 mg/dL (9-23); Calcium 8.3 mg/dL (8.7-10.4); Carbon Dioxide 31 mmol/L (20-31); Glucose 114 mg/dL (74-106)
[2024-09-02 03:35] LABS: INR 1.1 (0.9-1.15); Prothrombin Time 11.6 sec (9.3-11.8)
[2024-09-02 03:38] LABS: Partial Thromboplastin Time 71.5 SEC (24.5-34.5)
[2024-09-02] MEDS: MORPHINE SULFATE INJ 2 MG/ml SYRG IV PRN ×2 (06:00→06:25)
[2024-09-02 10:28] LABS: INR 1.09 (0.9-1.15); Prothrombin Time 11.5 sec (9.3-11.8)
[2024-09-02] MEDS ORDERED: APIX5TAB PO (14:02)
[2024-09-02] MEDS: APIXABAN 5 MG TAB PO SCH (18:13)
--- NOTE | 2024-09-02 22:29 | DVHPN2 ---
Progress Note - Dictate Date Seen: Sep 02, 2024 Medical Necessity Reason Pt with a Central, PICC or Fol: No Subjective Patient seen and examined at bedside. Breathing comfortably on room air. Overnight events reviewed. vital signs Vital Sign Date Time Temp Pulse Resp B/P (MAP) Pulse Ox O2 Delivery O2 Flow Rate FiO2 09/02/24 17:39 98.4 89 18 143/69 (93) 97 98.4 09/02/24 08:00 Room Air* 0 21 Total Intake and Output 09/01/24 09/01/24 09/02/24 15:00 23:00 07:00 Intake Total 0 ml 400 ml Balance 0 ml 400 ml medications Current Medications Medications Dose Ordered Sig/Vira Route Start Time Stop Time Status Last Admin Dose Admin Heparin Sodium/ Dextrose 250 ml @ 6.156 mls/ hr Q24H IV 08/31/24 21:45 UNV objective Gen.: Patient lying in bed in no apparent distress. Breathing on room air. Head: Normocephalic, atraumatic. Eyes: EOMI/PERRLA. Ears: Normal hearing. Normal anatomy. Neck/trachea: Trachea midline, supple. Nose: Normal external anatomy. Mouth: Moist mucous membranes. Chest: Decreased air entry bilaterally. No wheezing or rhonchi. Cardiovascular: Positive S1, positive S2. Regular rate and rhythm. Abdomen: Positive bowel sounds in all 4 quadrants. Soft, non-tender, non- distended. : Deferred. Rectal: Deferred. Skin: Warm, dry. Intact. Extremities: 2+ radial pulses bilaterally. No lower extremity edema. Neuro: Awake, alert, oriented x3. No gross motor or sensory deficits. Cranial nerves II through XII intact. Gait not assessed. laboratory and microbiology Laboratory Tests 09/02/24 03:00 Test 09/02/24 03:00 Range/Units Serum Glucose 114 H 74-106 mg/dL Assessment/Plan Impression: Pulmonary embolism Deep vein thrombosis, BLE Pancreatic cancer DM type II Cachexia, BMI 17.4 Events: Breathing on room air No respiratory distress. On Eliquis BID Accu-Cheks, ISS. Pain control Avoid oversedation. Heme/onc recommendations appreciated Patient is stable for discharge from the pulmonary standpoint. Labs and imaging reviewed. Rest of plan as noted below. Plan: Supplemental oxygen PRN Titrate to keep O2 sats above 92%. CTA of chest positive for bilateral pulmonary embolism. Monitor renal function. Monitor electrolytes. Supplement as necessary. Monitor ins and outs. DVT prophylaxis. Prognosis: Poor given patient's multiple co-morbidities. Rest of plan per hospitalist and other consultants. Thank you Hank Saucedo, POONAM, for allowing me to participate in this patient's care. Further recommendations will depend on the patient's clinical course. Please do not hesitate to contact me if you have any questions or concerns. This medical document was created using an electronic medical record system with [employer] dictation system. Although these documentations are being carefully reviewed, there may still be some phonetic and typographical changes. The errors are purely typographical, due to imperfection on the software program, and do not reflect any compromise in the patient's medical care. Plan discussed with: Patient, Other (NANCY Nguyen) GOPAL RIOS MD Sep 02, 2024 22:29
== END 2024-09-02 19:00 | disposition home or self-care (01) | DRG 299 ==
LOC: ER 11:10 → TELE 21:33 → TELE-EAST 09-01 13:09
PROVIDERS: ADMIT Nurse Practitioner Family; ATTEND Internal Medicine
DX: I82.412 Acute embolism and thrombosis of left femoral vein (principal); I26.99 Other pulmonary embolism without acute cor pulmonale; R64 Cachexia; Z68.1 Body mass index [BMI] 19.9 or less, adult; E87.6 Hypokalemia; I10 Essential (primary) hypertension; E11.65 Type 2 diabetes mellitus with hyperglycemia; E03.9 Hypothyroidism, unspecified; Z88.5 Allergy status to narcotic agent; Z88.1 Allergy status to other antibiotic agents; Z91.148 Patient's other noncompliance with medication regimen for other reason; Z91.199 Patient's noncompliance with other medical treatment and regimen due to unspecified reason; Z79.01 Long term (current) use of anticoagulants; Z85.07 Personal history of malignant neoplasm of pancreas
CPT/HCPCS: 36415; 71046; 71260; 74177; 80048; 80053; 81001; 82962; 83735; 83880; 84132; 84443; 84484; 85025; 85379; 85610; 85730; 93005; 93306; 93971; G0378; J1815; J3490; Q0162

== ENCOUNTER 2024-09-22 14:04 | Emergency (ER) | payer OTHER ==
[~2024-09-22] VITALS: Ht 144.8 cm; Wt 34.6 kg
[~2024-09-22 14:04] MED LIST: APIX5TAB PO; ERGO1CAP12 PO; GAB100C PO; HYDR1TAB97 PO; INSUINJ37 SC; LEVO-177 PO; LORA-483 PO; LOSA-534 PO; METF-370 PO; PANC1CAP54 PO
[2024-09-22 14:22] VITALS: BP 129/65; PULSE 116; RESP 18; O2SAT 97
--- NOTE | 2024-09-22 14:58 | ED.PDOC ---
Musculoskeletal HPI Comments 78Y F with PMHx DM, HTN, pancreatic CA, and DVT presents to ED for chief complaint bilateral leg swelling. Pt states she was dx with DVT less than one month ago and symptoms have not improved despite being on Eliquis. Pt states she is swollen from the waist down bilaterally. Pt also presents with ecchymosis of rt dorsal foot. Pt's chemo therapy was paused due to a hip fracture. Pt says she is going to have PET scan done soon to receive an update on the pancreatic CA. No other symptoms reported. pt reports no trauma, but she has been using an exercise bike Chief Complaint: Extremity Swelling Time Seen by MD: 14:30 Reviewed Notes: Nurses Notes, Medications, Allergies Allergies: Coded Allergies: Codeine (Verified Allergy, Unknown, 10/15/23) Sulfa Antibiotics (Verified Allergy, Unknown, 10/15/23) Home Meds Active Scripts Apixaban Base (ELIQUIS) 5 Mg Tab, 5 MG PO BID, #120 TAB take 2tab (10mg) twice a day for next 7 days then continue at 5mg twice a day Prov:JOSE ROMAN MD 09/02/24 Reported Medications Loratadine (CLARITIN TABLET) 10 Mg Tb, 1 TAB PO DAILY 09/01/24 Pancreatic Enzymes (Creon) 12,000 Unt Cap, 1 CAP PO TID 09/01/24 Metformin Hydrochloride (Metformin Hcl) 500 Mg Tab, 1 TAB PO BID 09/01/24 Gabapentin (Gabapentin) 100 Mg Cap, 1 CAP PO TID PRN for pain 09/01/24 Insulin Glargine (Lantus Solostar) 100 Unit/Ml Inj, SC 09/01/24 Hydrocodone-Acetaminophen (Hydrocodone/Acetaminophen 5-325 mg) 1 Tab Tab, 1 TAB PO TID 09/01/24 Ergocalciferol (Vitamin D) 50,000 Unit Cap, 1 CAP PO QWEEKLY 09/01/24 Levothyroxine Sodium (Levothyroxine Sodium) 88 Mcg Tab, 1 TAB PO DAILY 09/01/24 Losartan Potassium (Losartan Potassium) 50 Mg Tab, 1 TAB PO DAILY 09/01/24 Information Source: Patient, Relative (Child) Mode of Arrival: Wheelchair Location: Right Extremity Location: Leg Timing: Days Severity: Moderate Able to Move Extremity: Yes Bear Weight: Limited Pain: None Circumstances: Spontaneous Onset of Symptoms: Spontaneous Symptoms: Swelling DVT Risk Factors: PE, DVT Associated signs and symptoms: Other Past Medical History PAST MEDICAL HISTORY: Cancer, DM, HTN Surgical History: [employer] History: Denies all [employer] Hx Family History Family History: Unknown Social History Smoker: Non-Smoker Alcohol: Denies ETOH Use Drugs: Denies Drug Use Lives In: Home Constitutional: denies: chills, diaphoresis, fatigue, fever, malaise, sweats, weakness, others EENTM: denies: blurred vision, double vision, ear bleeding, ear discharge, ear drainage, ear pain, ear ringing, eye pain, eye redness, hearing loss, mouth pain, mouth swelling, nasal discharge, nose bleeding, nose congestion, nose pain, photophobia, tearing, throat pain, throat swelling, voice changes, others Respiratory: denies: cough, hemoptysis, orthopnea, SOB at rest, shortness of breath, SOB with excertion, stridor, wheezing, others Cardiovascular: reports: edema; denies: chest pain, dizzy spells, diaphoresis, Dyspnea on exertion, irregular heart beat, left arm pain, lightheadedness, palpitations, PND, syncope, others Gastrointestinal: denies: abdomen distended, abdominal pain, blood streaked bowels, constipated, diarrhea, dysphagia, difficulty swallowing, hematemesis, melena, nausea, poor appetite, poor fluid intake, rectal bleeding, rectal pain, vomiting, others Genitourinary: denies: abnormal vagina bleeding, burning, dyspareunia, dysuria, flank pain, frequency, hematuria, incontinence, pain, , vagina discharge, urgency, others Neurological: denies: dizziness, fainting, headache, left sided numbness, left sided weakness, numbness, paresthesia, pre-existing deficit, right sided numbness, right sided weakness, seizure, speech problems, tingling, tremors, weakness, others Musculoskeletal: denies: back pain, gout, joint pain, joint swelling, muscle pain, muscle stiffness, neck pain, others Integumetry: denies: bruises, change in color, change in hair/nails, dryness, laceration, lesions, lumps, rash, wounds, others Allergic/Immunocompromised: denies: Difficulty Healing, Frequent Infections, Hives, Itching, others Hematologic/Lymphatic: reports: blood clots; denies: anemia, easy bleeding, easy bruising, swollen glands, others Endocrine: denies: excessive hunger, excessive sweating, excessive thirst, excessive urination, flushing, intolerance to cold, intolerance to heat, unexplained weight gain, unexplained weight loss, others Psychiatric: denies: anxiety, bipolar disorder, depression, hopeless, panic disorder, schizophrenia, sleepless, suicidal, others Physical Exam General Appearance: No Apparent Distress, Normal HEENT: Normal ENT Inspection, Pharynx Normal, TMs Normal Neck: Full Range of Motion, Non-Tender, Normal, Normal Inspection Respiratory: Chest Non-Tender, Lungs Clear, No Accessory Muscle Use, No Respiratory Distress, Normal Breath Sounds Cardiovascular: No JVD, No Murmur, No Gallop, Normal Peripheral Pulses, Regular Rate/Rhythm Breast Exam: Deferred Gastrointestinal: No Organomegaly, Non Tender, No Pulsatile Mass, Normal Bowel Sounds, Soft Genitalia: Deferred Pelvic: Deferred Rectal: Deferred Extremities: Leg edema (R>L), No calf tenderness, Normal capillary refill, Normal range of motion, Non-tender, Pedal edema Musculoskeletal : Apperance: Normal Neurologic: Alert, land leasing examiner II-XII nml as Tested, No Motor Deficits, Normal Affect, Normal Mood, No Sensory Deficits Cerebellar Function: Normal Reflexes: Normal Skin: Bruises (rt dorsal foot: ecchymosis), Dry, Warm Lymphatic: No Adenopathy Was a procedure done? Was a procedure done?: No Differential Diagnosis EXT Differential Diagnosis: Cellulitis, CHF, Deep Vein Thrombosis, Compartment Syndrome, Fracture, Sprain, Dislocation, Gout, DJD, Contusion, Strain, Neurovascular injury, Arthritis, Bursitis, Other X-Ray, Labs, Meds, VS Vital Signs Date Time Temp Pulse Resp B/P (MAP) Pulse Ox O2 Delivery O2 Flow Rate FiO2 09/22/24 14:22 98.4 116 18 129/65 (86) 97 [facility] [id number] [place] [id number] Ph: [phone] DIAGNOSTIC IMAGING Diagnostic Imaging Report : [id number] Signed PATIENT: BETHANIE FAUSTACCT: [id number] UNIT: [id number] : 1945 LOC: ER ROOM / BED: / AGE / SEX: 78 / F ADM STATUS: REG ER SERVICE 1500 ORDERING PHYSICIAN: MINERVA ROBLES MD PROCEDURE(s): RFOT2 - R FOOT 2 VIEW XRAY REASON: PAIN ORDER NUMBER(s): [id number], ACCESSION NUMBER(s): [id number] CLINICAL INDICATION: PAIN TECHNIQUE: 2 radiographic views of the right foot were obtained. Comparison: None FINDINGS/IMPRESSION: There is no evidence of acute fracture or dislocation. Plantar calcaneal bony spur. The visualized joint space is well maintained. The alignment is anatomical. There is no radiopaque foreign body. Significant soft tissue edema of the foot. Vascular calcification is noted. ATED BY: ALICIA ADAMES DO DICTATED DATE/TIME: 09/22/24 1521 SIGNED BY: ALICIA ADAMES DO SIGNED DATE/TIME: 09/22/24 1521 CC: [place] [id number] Ph: [phone] DIAGNOSTIC IMAGING Diagnostic Imaging Report : [id number] Signed PATIENT: BETHANIE FAUSTACCT: [id number] UNIT: [id number] : 1945 LOC: ER ROOM / BED: / AGE / SEX: 78 / F ADM STATUS: REG ER SERVICE [id number] ORDERING PHYSICIAN: MINERVA ROBLES MD PROCEDURE(s): RLDVT - RT Lower DVT REASON: R/O DVT, SWELLING ORDER NUMBER(s): [id number], ACCESSION NUMBER(s): [id number] US RT LOWER DVT US 09/22/2024 03:17 PM Clinical History: R/O DVT, SWELLING Comparison: US LT LOWER DVT on DOS: 08/31/24 Technique: Duplex Doppler evaluation of the deep venous system of the right lower extremity from the common femoral vein to the popliteal vein including color Doppler and spectral/pulsed waveform analysis was performed. Findings: The common femoral vein demonstrates appropriate compressibility and waveform variability. There is compressibility/patency of the great saphenous vein at the proximal thigh. The femoral vein demonstrates appropriate compressibility and waveform variability. The deep femoral vein demonstrates appropriate compressibility and waveform variability. The popliteal vein demonstrates appropriate compressibility and waveform variability. There is color flow in the tibioperoneal trunk and posterior tibial vein. Moderate subcutaneous edema noted in the calf and in the popliteal region. A small, 3.3 cm waggoner's cyst noted. Impression: 1. No deep venous thrombosis right lower extremity. If clinical concern/symptoms persist or worsen, short-interval follow-up study is suggested. 2. Moderate subcutaneous edema. 3. Small waggoner's cyst. ATED BY: SOBIA BRICEÑO MD DICTATED DATE/TIME: 09/22/24 1546 SIGNED BY: SOBIA BRICEÑO MD SIGNED DATE/TIME: 09/22/24 1546 CC: Time of 1ST Reevaluation: 15:00 Reevaluation 1ST: Unchanged Patient Education/Counseling: Diagnosis, Treatment, Prognosis, Need For Follow Up Family Education/Counseling: Diagnosis, Treatment, Prognosis, Need For Follow Up, No Family Present Additional Information I reviewed the following notes from patient's past medical encounters: [facility] discharge 09/02/2024; [facility] ER 10/15/2023 The following tests were ordered, and results were reviewed by me: RLE DVT u/s, rt foot x-ray Additional Information was gathered from interviewing the following independent historians: daughter I reviewed and agreed with the following test results read by other providers: RLE DVT u/s, rt foot x-ray I discussed treatment and results with medical personnel. pt does not have a new dvt. she has a small waggoner's cyst and the bruising and swelling of the right foot is likely due to using the exercise bike. she is stable for discharge Departure 1 Departure Time of Disposition: 16:26 Impression: Primary Impression: Contusion of right foot Qualified Codes: S90.31XA - Contusion of right foot, initial encounter Additional Impression: Waggoner's cyst of knee Qualified Codes: M71.21 - Synovial cyst of popliteal space [Waggoner], right knee Disposition: HOME / SELF CARE / HOMELESS Condition: Good Discharged With: Self, Relative Critical Care Note Critical Care Time?: Yes (55 min-critical care time only) Critical care comment: Due to concerns for patients condition deteriorating, the care required my highest level of attention and readiness to intervene. I assessed the patient, reviewed the medical records, ordered the appropriate tests and treatments, then reassessed for results and responsiveness. I communicated with medical personnel and consultants and formulated a plan of care. Total critical care time excludes any procedures Stability Stability form required: No Heart Score Heart Score: Heart Score Response (Comments) Value History N/A 0 EKG N/A 0 Age N/A 0 Risk Factors N/A 0 Troponin N/A 0 Total 0 I personally scribed for MINERVA ROBLES MD ([email or web address]) on 09/22/24 at 14:58. Electronically submitted by Eileen Major ([employer]). I personally scribed for MINERVA ROBLES MD (AKIKO) on 09/22/24 at 15:16. Electronically submitted by Eileen Major ([employer]). I personally scribed for MINERVA ROBLES MD (AKIKO) on 09/22/24 at 15:35. Electronically submitted by Eileen Major ([employer]). I personally scribed for MINERVA ROBLES MD ([facility]) on 09/22/24 at 15:54. Electronically submitted by Eileen Major ([employer]). MINERVA ROBLES MD Sep 22, 2024 14:58
--- NOTE | 2024-09-22 15:23 | DVH ---
CLINICAL INDICATION: PAIN TECHNIQUE: 2 radiographic views of the right foot were obtained. Comparison: None FINDINGS/IMPRESSION: There is no evidence of acute fracture or dislocation. Plantar calcaneal bony spur. The visualized joint space is well maintained. The alignment is anatomical. There is no radiopaque foreign body. Significant soft tissue edema of the foot. Vascular calcification is noted.
--- NOTE | 2024-09-22 15:48 | DVH ---
US RT LOWER DVT US 09/22/2024 03:17 PM Clinical History: R/O DVT, SWELLING Comparison: US LT LOWER DVT on DOS: 08/31/24 Technique: Duplex Doppler evaluation of the deep venous system of the right lower extremity from the common femo ral vein to the popliteal vein including color Doppler and spectral/pulsed waveform analysis was perf ormed. Findings: The common femoral vein demonstrates appropriate compressibility and waveform variability. There is compressibility/patency of the great saphenous vein at the proximal thigh. The femoral vein demonstrates appropriate compressibility and waveform variability. The deep femoral vein demonstrates appropriate compressibility and waveform variability. The popliteal vein demonstrates appropriate compressibility and waveform variability. There is color flow in the tibioperoneal trunk and posterior tibial vein. Moderate subcutaneous edema noted in the calf and in the popliteal region. A small, 3.3 cm farooq's cyst noted. Impression: 1. No deep venous thrombosis right lower extremity. If clinical concern/symptoms persist or worsen, short-interval follow-up study is suggested. 2. Moderate subcutaneous edema. 3. Small farooq's cyst.
== END 2024-09-22 17:10 | disposition home or self-care (01) ==
LOC: ER 14:04
DX: S90.31XA Contusion of right foot, initial encounter (principal); M71.21 Synovial cyst of popliteal space [Baker], right knee; I10 Essential (primary) hypertension; E11.9 Type 2 diabetes mellitus without complications; C25.9 Malignant neoplasm of pancreas, unspecified; Z79.01 Long term (current) use of anticoagulants; Z79.84 Long term (current) use of oral hypoglycemic drugs; Z79.890 Hormone replacement therapy; Z79.899 Other long term (current) drug therapy; Z88.2 Allergy status to sulfonamides; Z88.5 Allergy status to narcotic agent; X58.XXXA Exposure to other specified factors, initial encounter; Y93.89 Activity, other specified; Y92.89 Other specified places as the place of occurrence of the external cause; Y99.8 Other external cause status
CPT/HCPCS: 73620; 93971